=== PATIENT | male | born 1930 | race Caucasian/White ===

== ENCOUNTER 2021-03-16 17:35 | Inpatient (IN) | payer MEDICARE, MEDICAID ==
[~2021-03-16] VITALS: Ht 170.2 cm; Wt 54.9 kg
[~2021-03-16 17:35] MED LIST: DEPAKOTE; DILANTIN; KEPPRA
[2021-03-16] MEDS ORDERED: SODIUM CHLORIDE 0.9% 1,000 ML IV ONE (18:00)
[2021-03-16] MEDS ORDERED: LEVETIRACETAM 500MG PREMIX 100 ML IV ONE (18:30)
[2021-03-16 18:59] LABS: BASOPHILS % 0.4 % (0.0-2.0); EOSINOPHILS % 0.2 % (0.0-5.0); HEMATOCRIT. 39.6 % (42.0-52.0); HEMOGLOBIN. 13.5 g/dL (14.0-18.0); LYMPHOCYTES % 21.3 % (20.0-50.0); MEAN CORPUSCULAR HEMOGLOBIN 31.3 pg (28.0-32.0); MEAN CORPUSCULAR VOLUME 91.8 fL (80.0-94.0); MEAN PLATELET VOLUME 10.6 fl (7.4-10.4); NEUTROPHILS % 72.1 % (40.0-76.0); PLATELET 247 x1000/uL (130-400); RED BLOOD CELL COUNT 4.31 mill/uL (4.7-6.1); RED CELL DISTRIBUTION WIDTH 14.7 % (11.6-14.6)
[2021-03-16 20:18] LABS: CHLORIDE 108 mEq/L (98-107)
[2021-03-17] VITALS (12 sets, daily range): BP systolic 113–161; BP diastolic 51–92
[2021-03-17] MEDS ORDERED: CLONIDINE 0.1MG TABLET PO PRN (01:45)
[2021-03-17] MEDS ORDERED: CLONIDINE 0.1MG TABLET ONE (01:58)
[2021-03-17] MEDS ORDERED: LEVETIRACETAM 100MG/ML ORAL SYR PO SCH (09:00)
[2021-03-17] MEDS: ENOXAPARIN 40MG/0.4ML SYR SUBCUT SCH (09:25)
[2021-03-17] MEDS: LEVETIRACETAM 500MG TABLET PO SCH ×2 (09:26→21:12)
[2021-03-17] MEDS: ASPIRIN 81MG TABLET PO SCH ×2 (09:26→21:11)
[2021-03-17] MEDS: FAMOTIDINE 20MG TABLET PO SCH (09:26)
[2021-03-17] MEDS: METOPROLOL TARTRATE 50MG TABLET PO SCH ×2 (09:26→21:00)
[2021-03-17] MEDS ORDERED: ONDANSETRON HCL 4MG/2ML INJ IV PRN (12:45)
[2021-03-17] MEDS ORDERED: ACETAMINOPHEN 325MG TABLET PO PRN (12:45)
[2021-03-17] MEDS: LORAZEPAM 2MG/ML CPJ IV PRN (18:07)
[2021-03-17 19:02] LABS: CLARITY URINE CLOUDY (CLEAR); COLOR URINE YELLOW (YELLOW); KETONES URINE NEGATIVE (NEGATIVE); LEUKOCYTE ESTERASE URINE TRACE (NEGATIVE); NITRITE URINE POSITIVE (NEGATIVE); OCCULT BLOOD URINE 1+ (NEGATIVE); PROTEIN URINE NEGATIVE (NEGATIVE); SPECIFIC GRAVITY URINE 1.022 (1.005-1.030)
[2021-03-17] MEDS ORDERED: THIAMINE HCL 100 MG in SODIUM CHLORIDE 0.9% 50 ML IV SCH (23:00)
[2021-03-18] VITALS (7 sets, daily range): BP systolic 119–157; BP diastolic 48–91
[2021-03-18] MEDS: ASPIRIN 81MG TABLET PO SCH (08:48)
[2021-03-18] MEDS: LEVETIRACETAM 500MG TABLET PO SCH (08:48)
[2021-03-18] MEDS: FAMOTIDINE 20MG TABLET PO SCH (08:48)
[2021-03-18] MEDS: ENOXAPARIN 40MG/0.4ML SYR SUBCUT SCH (08:48)
[2021-03-18] MEDS: METOPROLOL TARTRATE 50MG TABLET PO SCH (08:54)
[2021-03-18] MEDS ORDERED: CEFTRIAXONE 1 G PREMIX 50 ML IV SCH (10:30)
[2021-03-18] MEDS ORDERED: LEVO500T89 MT (10:43)
[2021-03-18] MEDS ORDERED: TAMS-11 MT (10:43)
[2021-03-18 10:46] LABS: *BARBITURATES SCREEN URINE NEGATIVE (NEGATIVE); *BENZODIAZEPINES SCREEN URINE NEGATIVE (NEGATIVE); *COCAINE SCREEN URINE NEGATIVE (NEGATIVE)
[2021-03-18 10:47] LABS: *AMPHETAMINES SCREEN URINE NEGATIVE (NEGATIVE); CANNABINOID URINE SCREEN NEGATIVE (NEGATIVE); METHADONE URINE SCREEN NEGATIVE (NEGATIVE); OPIATES URINE SCREEN NEGATIVE (NEGATIVE); PHENCYCLIDINE URINE SCREEN NEGATIVE (NEGATIVE)
[2021-03-18] MEDS ORDERED: CEFTRIAXONE 1,000 MG in DEXTROSE 5% WATER 50 ML IV SCH (12:00)
[2021-03-18] MEDS: LORAZEPAM 2MG/ML CPJ IV PRN (12:21)
[2021-03-19] MEDS ORDERED: ENOXAPARIN 30MG/0.3ML SYR SUBCUT SCH (09:00)
== END 2021-03-18 16:10 | disposition home or self-care (01) | DRG 101 ==
LOC: ER 17:35 → 5EST 20:11 → EDBEDREQTM 20:14 → EDBEDREQ 20:14 → ENRESERV 23:00 → 5EST 03-17 00:43
PROVIDERS: ADMIT Internal Medicine; ATTEND Internal Medicine
PROC: 4A10X4Z Monitoring of Central Nervous Electrical Activity, External Approach (ICD-10-PCS; principal; 2021-03-18)
DX: G40.909 Epilepsy, unspecified, not intractable, without status epilepticus (principal); E44.0 Moderate protein-calorie malnutrition; E87.2 Acidosis; Z68.1 Body mass index [BMI] 19.9 or less, adult; E87.8 Other disorders of electrolyte and fluid balance, not elsewhere classified; I10 Essential (primary) hypertension
CPT/HCPCS: 36415; 70551; 71045; 80053; 80305; 81003; 83605; 83880; 84484; 85025; 93005; 95816; 97162; 99285; J0696; J1650; J1953; J2060; J2405; J3411; J7030; J7060